=== PATIENT | female | born 1955 | race Caucasian/White ===

== ENCOUNTER 2019-11-30 13:23 | Outpatient (RCR) | payer MEDICARE | END 2020-02-19 | disposition home or self-care (01) | LOC: WSST | DX: R13.13 Dysphagia, pharyngeal phase (principal); K21.00 Gastro-esophageal reflux disease with esophagitis, without bleeding ==

== ENCOUNTER → 2019-12-04 | Outpatient (CLI) | payer MEDICARE | LOC: COL.RAD 07:39 | DX: K21.00 Gastro-esophageal reflux disease with esophagitis, without bleeding (principal) ==

== ENCOUNTER 2020-09-24 11:44 | Day surgery (SDC) | payer MEDICARE ==
[~2020-09-24] VITALS: Ht 172.7 cm; Wt 95.1 kg
[2020-09-24] VITALS (9 sets, daily range): BP systolic 129–159; BP diastolic 53–84; PULSE 62–103; TEMP 97.9–98.2
[2020-09-24] MEDS ORDERED: PROTONIX 40MG T40 MG PO (13:20)
[2020-09-24] MEDS ORDERED: PRINIVIL40 MG PO (13:21)
[2020-09-24] MEDS ORDERED: CRESTOR 10MG10 MG PO (13:22)
[2020-09-24] MEDS ORDERED: PREMPRO 0.625 M1 TA1 PO (13:22)
[2020-09-24] MEDS ORDERED: MULTIPLE VITAMI1 TA5 PO (13:22)
[2020-09-24] MEDS ORDERED: COLACE 100100 MG/CAP PO (13:23)
[2020-09-24] MEDS ORDERED: ASPIRIN E.C. 8181 MG PO (13:23)
[2020-09-24] MEDS ORDERED: QSYMIA 7.5 MG-41 CER PO (13:24)
--- NOTE | 2020-09-24 17:37 | NUR ---
1700 REPORT RECEIVED FROM KAYCE LUJAN IN PACU. PATIENT WILL BE ARRIVING TO UNIT SOON. 1705 PATIENT ARRIVED FROM PATIENT VIA BED. PATIENT TRANSFERRED TO BED WITH SLIDE-BOARD. PATIENT SETTLED AND ORIENTED TO ROOM, CALL LIGHT PLACED WITHIN REACH. WILL CONTINUE TO MONITOR. SEE VITAL SIGN FLOWSHEET FOR DETAILS.
[2020-09-25] VITALS: BP 118/60; BP 132/78; PULSE 68; PULSE 78; TEMP 98.2; TEMP 98.4
[2020-09-25 04:00] VITALS: BP 110/62; BP 118/51; PULSE 59; PULSE 62; TEMP 98.1; TEMP 98.3
[2020-09-25 07:45] VITALS: BP 124/62; PULSE 67; TEMP 98.3
[2020-09-25 09:06] LABS: CREATININE, serum 1.26 (0.52-1.25); MAGNESIUM 1.8 mg/dL (1.6-2.3); PHOSPHOROUS 3.8 mg/dL (2.5-4.5); POTASSIUM 4.5 mmol/L (3.4-5.0)
--- NOTE | 2020-09-25 09:17 | NUR ---
Initial visit; Patient thanked Staffing Analyst for looking in on her and offering God's blessings.
[2020-09-25 12:00] VITALS: BP 128/63; PULSE 76; TEMP 98.5
[2020-09-25] MEDS ORDERED: ROXICODONE 55 MG/TAB PO (12:59)
[2020-09-25] MEDS ORDERED: PROMETHAZINE12.5 M5 PO (13:00)
[2020-09-25] MEDS ORDERED: ZOFRAN ODT4 MG PO (13:01)
[2020-09-25] MEDS ORDERED: TYLENOL 500MG500 MG PO (13:01)
--- NOTE | 2020-09-25 14:23 | NUR ---
DISCHARGE TEACHING COMPLETED. EDUCATED ON FOLLOW UP APPOINTMENT IN 1 WEEK. RX CALLED IN TO [facility] REVIEWED AND MEDS TO CONTINUE TAKING AND TO STOP. FULL LIQUID DIET DISCUSSED. ACTIVITY RESTRICTIONS OF 20 POUNDS. QUESTIONS INVITED AND ANSWERED.
== END 2020-09-25 14:33 | disposition home or self-care (01) ==
LOC: SDCO 11:44 → OB 16:30 → SDCO 09-25 14:33
PROVIDERS: Surgery
DX: K21.9 Gastro-esophageal reflux disease without esophagitis (principal); K11.7 Disturbances of salivary secretion; K44.9 Diaphragmatic hernia without obstruction or gangrene; I10 Essential (primary) hypertension; E78.00 Pure hypercholesterolemia, unspecified; I82.409 Acute embolism and thrombosis of unspecified deep veins of unspecified lower extremity; G89.29 Other chronic pain; M19.90 Unspecified osteoarthritis, unspecified site; F41.9 Anxiety disorder, unspecified; Z79.82 Long term (current) use of aspirin; Z20.822 Contact with and (suspected) exposure to COVID-19; Z79.899 Other long term (current) drug therapy; Z80.0 Family history of malignant neoplasm of digestive organs; Z83.3 Family history of diabetes mellitus
CPT/HCPCS: OP; J0690; J1650; J2250; J2704; J3010; J7120

== ENCOUNTER → 2020-12-19 | Outpatient (CLI) | payer MEDICARE ==
[~2020-12-19] MED LIST: ASPIRIN E.C. 8181 MG PO; COLACE 100100 MG/CAP PO; CRESTOR 10MG10 MG PO; MULTIPLE VITAMI1 TA5 PO; PREMPRO 0.625 M1 TA1 PO; PRINIVIL40 MG PO; PROMETHAZINE12.5 M5 PO; PROTONIX 40MG T40 MG PO; QSYMIA 7.5 MG-41 CER PO; ROXICODONE 55 MG/TAB PO; TYLENOL 500MG500 MG PO; ZOFRAN ODT4 MG PO
== END ==
LOC: COL.RAD 06:42
DX: K44.9 Diaphragmatic hernia without obstruction or gangrene (principal); Z98.890 Other specified postprocedural states
CPT/HCPCS: Q9967